=== PATIENT | female | born 1980 | race Caucasian/White ===

== ENCOUNTER 2018-10-13 15:22 | Emergency (ER) | payer BC ==
[~2018-10-13] VITALS: Ht 154.9 cm; Wt 54.4 kg
--- NOTE | 2018-10-13 15:45 | NUR ---
DR MAYEN AT THE BEDSIDE FOR MSE.
--- NOTE | 2018-10-13 17:10 | NUR ---
Patient discharged to home in stable conditon. Written and verbal after care instructions given. Patient verbalizes understanding of instructions.
[2018-10-13 17:13] VITALS: BP 109/60
== END 2018-10-13 17:14 | disposition home or self-care (01) ==
LOC: ER 15:25
DX: S83.92XA Sprain of unspecified site of left knee, initial encounter (principal); Z88.8 Allergy status to other drugs, medicaments and biological substances; W01.0XXA Fall on same level from slipping, tripping and stumbling without subsequent striking against object, initial encounter; Y93.89 Activity, other specified; Y92.89 Other specified places as the place of occurrence of the external cause; Y99.8 Other external cause status
CPT/HCPCS: A4663